=== PATIENT | male | born 1955 | race Caucasian/White ===

== ENCOUNTER → 2016-08-14 | Outpatient (CLI) | payer OTHER ==
[~2016-08-14] VITALS: Ht 190.5 cm; Wt 108.1 kg
[~2016-08-14] MED LIST: CHLORHEXIDINE GLUCONATE 2 % 1 PACK (2 CLOTHS) TOPICAL PRN; DO NOT ADM ANY ANTICOAGULANT DRUGS PRN; FLUMAZENIL 0.5 MG/5 ML VIAL IV PRN; INSULIN HUMAN REGULAR 1,000 UNITS/10 ML VIAL SQ PRN; LACTATED RINGER'S 1000 ML IV PRN; METOPROLOL TARTRATE 25 MG TAB PO PRN; NALOXONE HCL 0.4 MG/ML AMP IV PRN; OXYC-360 PO; POVIDONE IODINE 5% (ANTISEPSIS KIT) 4 APPLICATIONS EACH NARE PRN; PROPOFOL 200 MG/20 ML AMP IV ONE; SODIUM CHLORID 0.9% 500 ML IV PRN; Z.0.UNKNOWN
[2016-08-14 11:55] VITALS: BP 135/76; PULSE 55; RESP 20; TEMP 98.1; O2SAT 97
[2016-08-14 12:00] VITALS: BP 135/76; PULSE 55; RESP 20; TEMP 98.1; O2SAT 97
--- NOTE | 2016-08-14 14:03 | GIPROC ---
[facility] [address] [facility], [address] COLONOSCOPY PROCEDURE REPORT EXAM DATE: 08/14/2016 PATIENT NAME: Rohit Up MR #: [id number] BIRTHDATE: 1955 ENDOSCOPIST: Danyelle German MD ORDER #: [id number] FAMILY SUPPORT COORDINATOR: Jude Auguste Glinsky, Jason, and Rina Mckinnon STATUS: outpatient INDICATIONS: The patient is a 61 yr old male here for a colonoscopy due to screening, family history of polyps PROCEDURE PERFORMED: Total Colonoscopy with snare polypectomy x 1 MEDICATIONS: See Anesthesia Record ESTIMATED BLOOD LOSS: None CONSENT: The patient understands the risks and benefits of the procedure and understands that these risks include, but are not limited to: sedation, allergic reaction, infection, perforation and/or bleeding. Alternative means of evaluation and treatment include, among others: physical exam, x-rays, and/or surgical intervention. The patient elects to proceed with this endoscopic procedure. DESCRIPTION OF PROCEDURE: checked for proper function. Hand hygiene and appropriate measures for infection prevention was taken. After the risks, benefits and alternatives of the procedure were thoroughly explained, Informed consent was verified, confirmed and timeout was successfully executed by the treatment team. A digital exam was performed. The Tentax [id number] endoscope was introduced through the anus and advanced to the cecum, which was identified by the appendiceal orifice, tri-radiate valve, and ileocecal valve. The prep quality was fair. The instrument was then slowly withdrawn as the colon was fully examined. There were no mucosal abnormalities noted with the cecum. In the ascending colon, a 6-8 mm polyp was noted and removed with the snare polypectomy forceps. This was retrieved and sent for pathology. There were no mucosal abnormalities in the transverse colon or descending colon. In the sigmoid there was moderate diverticulosis without angulation. There were no abnormalities in the rectum. The scope was then completely withdrawn from the patient and the procedure terminated. ADVERSE EVENTS: There were no complications. WITHDRAWL TIME: DEGREE OF DIFFICULTY: IMPRESSIONS: Normal Colon RECOMMENDATIONS: Repeat colonoscopy in 3 years if polyp adenomatous, otherwise 5 years PATIENT CONDITION: Stable DISPOSITION: HOme RECALL: To be determined Danyelle German MD eSigned: Danyelle German MD 08/14/2016 2:02 PM cc: Dr. Murphy Varela PATIENT NAME: Rohit Up MR#: [id number]
[2016-08-14 14:30] VITALS: BP 132/74; PULSE 43; RESP 18; TEMP 97.4; O2SAT 100
--- NOTE | 2016-08-15 15:25 | EKG ---
Date Performed: 08/14/2016 Time Performed: 12:15:39 PTAGE: 61 years EKG: SINUS BRADYCARDIA BORDERLINE ECG NO PREVIOUS TRACING DOCTOR: Curly Jimenez Interpretating Date/Time 08/15/2016 15:23:15
== END ==
LOC: HEND 11:11
PROVIDERS: ATTEND Colon & Rectal Surgery
DX: Z12.11 Encounter for screening for malignant neoplasm of colon (principal); D12.2 Benign neoplasm of ascending colon; K57.90 Diverticulosis of intestine, part unspecified, without perforation or abscess without bleeding; Z83.71 Family history of colonic polyps; Z01.810 Encounter for preprocedural cardiovascular examination
CPT/HCPCS: 88305; 93005